=== PATIENT | female | born 1995 | race African-American/Black ===

== ENCOUNTER 2017-10-09 15:57 | Observation (INO) | payer OTHER ==
[2017-10-09 16:41] LABS: BILIRUBIN,URINE NEGATIVE (NEG); CLARITY,URINE CLEAR; COLOR,URINE YELLOW; GLUCOSE,URINE NEGATIVE (NEG); NITRITE,URINE NEGATIVE (NEG); PROTEIN,URINE NEGATIVE (NEG-TRACE)
[2017-10-09 16:58] LABS: BACTERIA,URINE MANY /HPF (0-FEW); RBC,URINE 0 /HPF (0-2); SQUAMOUS EPITHELIAL CELL,UR MOD /LPF; WBC,URINE 20-40 /HPF (0-4)
[2017-10-09 17:09] LABS: AMPHETAMINE/METHAMPHETAMINE NEG (NEG); BARBITURATES NEG (NEG); BENZODIAZEPINES NEG (NEG); CANNABINOIDS NEG (NEG); COCAINE NEG (NEG); ETHANOL, URINE NEG (NEG); METHADONE NEG (NEG); OPIATES NEG (NEG); PHENCYCLIDINE NEG (NEG)
== END 2017-10-09 17:20 | disposition home or self-care (01) ==
LOC: 3 SO LND 15:57
DX: O26.892 Other specified pregnancy related conditions, second trimester (principal); R10.2 Pelvic and perineal pain; M54.9 Dorsalgia, unspecified; Z3A.20 20 weeks gestation of pregnancy
CPT/HCPCS: 80307; 81001; 87086; G0378; G0379

== ENCOUNTER 2017-12-30 21:29 | Observation (INO) | payer OTHER ==
[2017-12-30 21:55] LABS: BILIRUBIN,URINE NEGATIVE (NEG); CLARITY,URINE CLEAR; COLOR,URINE YELLOW; GLUCOSE,URINE NEGATIVE (NEG); NITRITE,URINE NEGATIVE (NEG); PH,URINE 6.5; PROTEIN,URINE NEGATIVE (NEG-TRACE)
[2017-12-30 22:02] LABS: BARBITURATES NEG (NEG); BENZODIAZEPINES NEG (NEG); CANNABINOIDS NEG (NEG); COCAINE NEG (NEG); METHADONE NEG (NEG); OPIATES NEG (NEG); PHENCYCLIDINE NEG (NEG)
[2017-12-30 22:03] LABS: AMPHETAMINE/METHAMPHETAMINE NEG (NEG); BACTERIA,URINE MANY /HPF (0-FEW); ETHANOL, URINE NEG (NEG); RBC,URINE OCC /HPF (0-2); SQUAMOUS EPITHELIAL CELL,UR MANY /LPF
[2017-12-30] MEDS: hydrOXYzine PAMOATE 25 MG CAPSULE PO (23:31)
[2017-12-30] MEDS: NIFEdipine 10 MG CAPSULE PO (23:32)
[2017-12-30] MEDS: IV RINGERS,LACTATED 1000ML 1,000 ML IV (23:33)
== END 2017-12-31 08:30 | disposition home or self-care (01) ==
LOC: 3 SO LND 21:29
DX: O62.9 Abnormality of forces of labor, unspecified (principal); Z3A.32 32 weeks gestation of pregnancy
CPT/HCPCS: 80307; 81001; 87086; 96360; 96361; G0378; G0379; J7120; Q0177

== ENCOUNTER 2018-01-11 20:36 | Observation (INO) | payer OTHER ==
[2018-01-11 21:15] LABS: BILIRUBIN,URINE NEGATIVE (NEG); CLARITY,URINE CLEAR; COLOR,URINE YELLOW; GLUCOSE,URINE NEGATIVE (NEG); NITRITE,URINE NEGATIVE (NEG); PROTEIN,URINE NEGATIVE (NEG-TRACE)
[2018-01-11 21:22] LABS: AMPHETAMINE/METHAMPHETAMINE NEG (NEG); BARBITURATES NEG (NEG); BENZODIAZEPINES NEG (NEG); CANNABINOIDS NEG (NEG); COCAINE NEG (NEG); ETHANOL, URINE NEG (NEG); METHADONE NEG (NEG); OPIATES NEG (NEG); PHENCYCLIDINE NEG (NEG)
[2018-01-11 21:30] LABS: BACTERIA,URINE MODERATE /HPF (0-FEW); SQUAMOUS EPITHELIAL CELL,UR MANY /LPF
[2018-01-11] MEDS: NIFEdipine 10 MG CAPSULE PO (21:57)
[2018-01-11] MEDS: hydrOXYzine PAMOATE 25 MG CAPSULE PO (21:58)
[2018-01-11] MEDS: IV RINGERS,LACTATED 1000ML 1,000 ML IV (21:58)
[2018-01-11] MEDS: BETAMET ACET&NA PHOS 30 MG/5 ML VIAL. IM (23:59)
[2018-01-12] MEDS: hydrOXYzine PAMOATE 25 MG CAPSULE PO ×4 (03:02→19:03)
[2018-01-12] MEDS: NIFEdipine 10 MG CAPSULE PO ×4 (04:15→16:13)
[2018-01-12] MEDS: IV RINGERS,LACTATED 1000ML 1,000 ML IV ×3 (04:22→10:10)
== END 2018-01-12 19:20 | disposition home or self-care (01) ==
LOC: 3 SO LND 20:36
DX: O62.9 Abnormality of forces of labor, unspecified (principal); Z3A.34 34 weeks gestation of pregnancy
CPT/HCPCS: 80307; 81001; 87086; 96360; 96361; 96372; G0378; G0379; J0702; J7120; Q0177

== ENCOUNTER 2018-01-23 21:33 | Observation (INO) | payer OTHER ==
[2018-01-23 22:10] LABS: COLOR,URINE YELLOW
[2018-01-23] MEDS: IV RINGERS,LACTATED 1000ML 1,000 ML IV (22:10)
[2018-01-23 22:11] LABS: BACTERIA,URINE MANY /HPF (0-FEW); BILIRUBIN,URINE NEGATIVE (NEG); CLARITY,URINE CLEAR; GLUCOSE,URINE NEGATIVE (NEG); NITRITE,URINE NEGATIVE (NEG); PROTEIN,URINE NEGATIVE (NEG-TRACE); SQUAMOUS EPITHELIAL CELL,UR MANY /LPF; WBC,URINE RARE /HPF (0-4)
[2018-01-23 22:13] LABS: BARBITURATES NEG (NEG); BENZODIAZEPINES NEG (NEG); CANNABINOIDS NEG (NEG); COCAINE NEG (NEG); METHADONE NEG (NEG); OPIATES NEG (NEG); PHENCYCLIDINE NEG (NEG)
[2018-01-23 22:21] LABS: AMPHETAMINE/METHAMPHETAMINE NEG (NEG); ETHANOL, URINE NEG (NEG)
== END 2018-01-24 00:23 | disposition home or self-care (01) ==
LOC: 3 SO LND 21:33
DX: O62.9 Abnormality of forces of labor, unspecified (principal); Z3A.35 35 weeks gestation of pregnancy; Z79.899 Other long term (current) drug therapy
CPT/HCPCS: 80307; 81001; 87086; 96360; 96361; G0378; G0379; J7120

== ENCOUNTER 2018-02-01 15:10 | Observation (INO) | payer OTHER ==
[2018-02-01 15:47] LABS: BILIRUBIN,URINE NEGATIVE (NEG); CLARITY,URINE CLEAR; COLOR,URINE YELLOW; GLUCOSE,URINE NEGATIVE (NEG); NITRITE,URINE NEGATIVE (NEG); PH,URINE 6.5; PROTEIN,URINE NEGATIVE (NEG-TRACE)
[2018-02-01 16:10] LABS: BACTERIA,URINE MODERATE /HPF (0-FEW); RBC,URINE 0 /HPF (0-2)
[2018-02-01 16:11] LABS: SQUAMOUS EPITHELIAL CELL,UR MOD /LPF
== END 2018-02-01 17:00 | disposition home or self-care (01) ==
LOC: 3 SO LND 15:10
DX: O62.9 Abnormality of forces of labor, unspecified (principal); Z3A.37 37 weeks gestation of pregnancy; Z79.899 Other long term (current) drug therapy
CPT/HCPCS: 81001; 87086; G0378; G0379

== ENCOUNTER 2018-02-06 13:37 | Inpatient (IN) | payer OTHER ==
[2018-02-06 16:10] LABS: BILIRUBIN,URINE NEGATIVE (NEG); CLARITY,URINE CLEAR; GLUCOSE,URINE NEGATIVE (NEG); NITRITE,URINE NEGATIVE (NEG); PROTEIN,URINE NEGATIVE (NEG-TRACE)
[2018-02-06 16:41] LABS: COLOR,URINE DK YELLOW
[2018-02-06 16:44] LABS: BACTERIA,URINE MANY /HPF (0-FEW); RBC,URINE RARE /HPF (0-2); SQUAMOUS EPITHELIAL CELL,UR MANY /LPF
[2018-02-06] MEDS ORDERED: OXYTOCIN 30 UNIT/500 ML PREMIX 500 ML IV (18:15)
[2018-02-06] MEDS ORDERED: LIDOCAINE 1% PF 30 ML VIAL. INJ ×2 (18:15→21:45)
[2018-02-06] MEDS ORDERED: ONDANSETRON PF 4 MG/2 ML VIAL. IV (18:15)
[2018-02-06] MEDS ORDERED: 0.9 % SODIUM CHLORIDE 10 ML DISP.SYRIN. IV ×2 (18:15→21:45)
[2018-02-06] MEDS: OXYTOCIN 30 UNIT/500 ML PREMIX 500 ML IV (18:48)
[2018-02-06] MEDS: IV RINGERS,LACTATED 1000ML 1,000 ML IV (18:48)
[2018-02-06 18:56] LABS: ADD MAN DIFF? NO
[2018-02-06 18:59] LABS: BASO # 0.1 x10^3/uL (0.0-0.2); BASO % 1 % (0-3); EOS # 0.1 x10^3/uL (0.0-0.7); EOS % 1 % (0-3); HEMOGLOBIN 11.6 g/dL (12.0-15.5); LYMPH # 2.6 x10^3/uL (1.0-4.8); LYMPH % 24 % (24-48); MEAN CORPUSCULAR HEMOGLOBIN 27 pg (25-35); MEAN CORPUSCULAR HGB CONC 33 g/dL (31-37); MEAN CORPUSCULAR VOLUME 80 fL (79-100); MONO # 1.2 x10^3/uL (0.0-1.1); MONO % 11 % (0-9); NEUT # 7.1 x10^3uL (1.8-7.7); NEUT % 64 % (31-73); PLATELET COUNT 246 x10^3/uL (140-400); RED BLOOD COUNT 4.36 x10^6/uL (3.50-5.40); RED CELL DISTRIBUTION WIDTH 15.5 % (11.5-14.5); WHITE BLOOD COUNT 11.1 x10^3/uL (4.0-11.0)
[2018-02-06] MEDS ORDERED: BUTORPHANOL 2 MG/ML VIAL. IV ×2 (21:45)
[2018-02-06] MEDS ORDERED: TERBUTALINE 1 MG/ML VIAL. SQ (21:45)
[2018-02-06] MEDS ORDERED: MAG HYDROX/ALUMINUM HYD/SIMETH 30 ML ORAL.SUSP PO (21:45)
[2018-02-07] MEDS: IV RINGERS,LACTATED 1000ML 1,000 ML IV ×2 (02:07→07:37)
[2018-02-07] MEDS: fentaNYL PF VIAL 100 MCG/2 ML VIAL IV ×2 (02:21→06:59)
[2018-02-07] MEDS ORDERED: IV RINGERS,LACTATED 1000ML 1,000 ML IV ×2 (07:46→07:51)
[2018-02-07] MEDS ORDERED: NALOXONE 0.4 MG/ML VIAL. IV ×2 (08:00)
[2018-02-07] MEDS ORDERED: ROPIVacaine 0.2% IN 0.9%NACL PF 40 MG/20 ML DISP.SYRIN. EPI (08:00)
[2018-02-07] MEDS ORDERED: fentaNYL PF VIAL 100 MCG/2 ML VIAL EPI ×2 (08:00)
[2018-02-07] MEDS ORDERED: ONDANSETRON PF 4 MG/2 ML VIAL. IV ×2 (08:00)
[2018-02-07] MEDS ORDERED: ePHEDrine PF IN SALINE 50 MG/5 ML DISP.SYRIN IV (08:00)
[2018-02-07] MEDS ORDERED: L&D EPIDURAL SYRINGE 50 ML EP ×2 (08:08→11:40)
[2018-02-07] MEDS ORDERED: MAGNESIUM HYDROXIDE 2,400 MG/30 ML ORAL.SUSP. PO (12:15)
[2018-02-07] MEDS ORDERED: ZOLPIDEM 5 MG TABLET. PO (12:15)
[2018-02-07] MEDS ORDERED: SIMETHICONE 80 MG TAB.CHEW PO (12:15)
[2018-02-07] MEDS ORDERED: ACETAMINOPHEN 325 MG TABLET. PO (12:15)
[2018-02-07] MEDS ORDERED: diphenhydrAMINE HCL 25 MG CAPSULE PO (12:15)
[2018-02-07] MEDS ORDERED: IBUPROFEN 800 MG TABLET. PO (12:15)
[2018-02-07] MEDS ORDERED: HYDROCORTISONE 1% TOPICAL OINTMENT 30GM TUBE. TP (12:15)
[2018-02-07] MEDS ORDERED: 0.9 % SODIUM CHLORIDE 10 ML DISP.SYRIN. IV (12:15)
[2018-02-07] MEDS ORDERED: OXYTOCIN 30 UNIT/500 ML PREMIX 500 ML IV (12:15)
[2018-02-07] MEDS ORDERED: PHENYLEPH/MINERAL OIL/PETROLAT RECTAL OINTMENT 28GM TUBE. RC (12:15)
[2018-02-07] MEDS ORDERED: MAG HYDROX/ALUMINUM HYD/SIMETH 30 ML ORAL.SUSP PO (12:15)
[2018-02-07] MEDS: BENZOCAINE 20% TOPICAL AEROSOL SPRAY 57GM CAN. TP (13:29)
[2018-02-07] MEDS: IBUPROFEN 800 MG TABLET. PO ×2 (13:29→20:45)
[2018-02-07] MEDS ORDERED: FERROUS SULFATE 325 MG TABLET. PO (17:00)
[2018-02-07] MEDS: ACETAMINOPHEN 325 MG TABLET. PO (18:19)
[2018-02-08] MEDS: IBUPROFEN 800 MG TABLET. PO ×3 (03:06→17:23)
[2018-02-08 06:47] LABS: HEMATOCRIT 35.4 % (36.0-47.0)
[2018-02-08] MEDS: ACETAMINOPHEN 325 MG TABLET. PO ×2 (07:25→21:06)
[2018-02-09] MEDS: IBUPROFEN 800 MG TABLET. PO ×2 (05:38→16:51)
[2018-02-09] MEDS: ACETAMINOPHEN 325 MG TABLET. PO (09:35)
== END 2018-02-09 19:40 | disposition home or self-care (01) | DRG 775 ==
LOC: 3 SO LND 13:37 → 3 NORTH 02-07 14:00
PROC: 10E0XZZ Delivery of Products of Conception, External Approach (ICD-10-PCS; principal; 2018-02-07)
PROC: 3E0R3BZ Introduction of Anesthetic Agent into Spinal Canal, Percutaneous Approach (ICD-10-PCS; 2018-02-07)
PROC: 00HU33Z Insertion of Infusion Device into Spinal Canal, Percutaneous Approach (ICD-10-PCS; 2018-02-07)
DX: O76 Abnormality in fetal heart rate and rhythm complicating labor and delivery (principal); Z3A.38 38 weeks gestation of pregnancy; Z37.0 Single live birth
CPT/HCPCS: 36415; 76819; 81001; 85014; 85025; 86592; 86850; 86900; 86901; 87086; G0378; G0379; J2590; J3010; J7120